=== PATIENT | male | born 1940 | race Caucasian/White ===

== ENCOUNTER 2017-01-12 05:38 | Day surgery (SDC) | payer MEDICARE ==
[2017-01-12] MEDS: PROPARACAINE 0.5% OPHTH SOL 15 ML BTTL ONE ×3 (08:15→09:22)
[2017-01-12] MEDS: TOBRAMYCIN SULF 0.3 % OPHT SOL 1 DROP LEFT_EYE ONE ×2 (08:15→09:42)
[2017-01-12] MEDS ORDERED: TROP 1%/CYCLOPEN 1%/PHENYL 2% DROPS OPHTH ONE ×3 (08:15→08:30)
[2017-01-12] MEDS ORDERED: MIDAZOLAM INJ 5 MG/5 ML VIAL ONE (09:15)
[2017-01-12] MEDS ORDERED: LIDOCAINE 1% PF 2 ML AMP INJ ONE (09:24)
[2017-01-12] MEDS ORDERED: BRIMONIDINE 0.2% OPHTH DROPS LEFT_EYE ONE (09:42)
[2017-01-12] MEDS ORDERED: DEXAMETHASONE 0.1% OPHTH SOL 1 DROP LEFT_EYE ONE (09:42)
[2017-01-12 15:44] VITALS: BP 157/84; TEMP 96.4; O2SAT 96
== END 2017-01-12 10:30 | disposition home or self-care (01) ==
LOC: AMB 05:38
PROVIDERS: ATTEND Ophthalmology
DX: H25.12 Age-related nuclear cataract, left eye (principal)
CPT/HCPCS: 66984; J2250

== ENCOUNTER 2017-01-22 05:49 | Day surgery (SDC) | payer MEDICARE ==
[2017-01-22] MEDS ORDERED: MIDAZOLAM INJ 5 MG/5 ML VIAL ONE (08:47)
[2017-01-22] MEDS ORDERED: PROPARACAINE 0.5% OPHTH SOL 15 ML BTTL ONE ×2 (11:59→13:22)
[2017-01-22] MEDS ORDERED: LIDOCAINE 1% PF 2 ML AMP INJ ONE (12:00)
[2017-01-22 13:14] VITALS: O2SAT 100
[2017-01-22] MEDS ORDERED: TROP 1%/CYCLOPEN 1%/PHENYL 2% DROPS ONE (13:23)
[2017-01-22] MEDS: TOBRAMYCIN SULF 0.3 % OPHT SOL 1 DROP RIGHT_EYE ONE ×3 (13:39→14:37)
[2017-01-22] MEDS ORDERED: PROPARACAINE 0.5% OPHTH SOL 15 ML BTTL RIGHT_EYE ONE (14:10)
[2017-01-22] MEDS ORDERED: DEXAMETHASONE 0.1% OPHTH SOL 1 DROP RIGHT_EYE ONE ×3 (14:27→14:37)
[2017-01-22] MEDS ORDERED: BRIMONIDINE 0.2% OPHTH DROPS RIGHT_EYE ONE ×2 (14:28→14:37)
[2017-01-22 14:58] VITALS: BP 147/78; TEMP 97.6
== END 2017-01-22 15:15 | disposition home or self-care (01) ==
LOC: AMB 05:49
PROVIDERS: ATTEND Ophthalmology
DX: H25.11 Age-related nuclear cataract, right eye (principal)
CPT/HCPCS: 00142; 66984; J2250

== ENCOUNTER → 2017-11-23 | Outpatient (CLI) | payer MEDICARE ==
--- NOTE | 2017-11-23 10:12 | CT ---
EXAM DESCRIPTION: Abdomen/Pelvis w/Contrast CLINICAL HISTORY: 77 years Male, ABD/PELVIC PAIN COMPARISON: CTA chest, September 27, 2013. TECHNIQUE: Contiguous 5 mm axial images were obtained from the lung bases to the level of the proximal femora after the administration of intravenous and oral contrast. Delayed images were also obtained from the lung bases to the proximal femoral level. Sagittal and coronal reconstructions were reviewed. FINDINGS: THORAX: The imaged lower thorax demonstrates persistent pleural-based scarring in the lateral segment of the right middle lobe. Again noted are minimal bibasilar atelectatic changes and a small cystic changes within both lower lobes. Persistent trace pericardial effusion is also noted. Mild thickening of the distal esophagus likely related to acid reflux disease. LIVER: The liver demonstrates normal size and density with no intrahepatic biliary ductal dilatation or enhancing focal masses. Again noted is a 1.5 cm low-density lesion in the segment 4 a and a 9 mm low-density lesion in segment 8 and on the dome likely represents simple cysts. GALLBLADDER: Grossly unremarkable. No evidence of cholelithiasis or acute cholecystitis. PANCREAS: Appears normal with no cystic or solid lesions. SPLEEN: Normal ADRENAL GLANDS: Normal with no nodules or masses. KIDNEYS: Both kidneys enhance symmetrically with no hydronephrosis or nephrolithiasis or perinephric fluid collections. No focal masses are identified. The ureters appear grossly unremarkable throughout the length. STOMACH: The stomach is collapsed limiting detail evaluation. SMALL BOWEL: The small bowel loops demonstrate variable degrees of distention with no abnormal dilatation or other signs to suggest bowel obstruction. LARGE Bowel: the rectum is not well-distended limiting detail evaluation.The rest of the large bowel loops appear grossly unremarkable with no abnormal dilatation or wall thickening. The appendix is not well-visualized, however no inflammatory changes within the right lower quadrant to suggest acute appendicitis. No evidence of free intraperitoneal air or fluid. Scattered diverticuli are noted throughout the colon with no evidence of acute diverticulitis. RETROPERITONEUM: The abdominal aorta is nonaneurysmal with mild atherosclerosis. The inferior vena cava is normal in size and caliber. No abnormally enlarged retroperitoneal lymph nodes are identified. URINARY BLADDER:The urinary bladder is well-distended with no gross abnormality. The prostate is enlarged measuring 4.0 x 5.6 cm in AP and transverse dimensions causing indentation at the base of the bladder. ADDITIONAL FINDINGS: Surgical clips are noted in the left inguinal region, could be related to prior surgery. BONES: Mild degenerative changes are identified in the lumbar spine and bilateral hip joints.No evidence of osteophytic or osteoblastic lesions. IMPRESSION: 1. No acute intra-abdominal process. 2. Diverticulosis with no evidence of acute diverticulitis. 3. Persistent trace pericardial effusion. 4. Prostatomegaly likely secondary to BPH. This exam was performed according to our departmental dose-optimization program, which includes automated exposure control, adjustment of the mA and/or kV according to patient size and/or use of iterative reconstruction technique. Electronically signed by: Angel Luis Rainey MD 11/23/2017 10:10 AM CDT
== END ==
LOC: CT 08:00
PROVIDERS: ATTEND Nurse Practitioner
DX: R10.2 Pelvic and perineal pain (principal); K57.90 Diverticulosis of intestine, part unspecified, without perforation or abscess without bleeding; N40.0 Benign prostatic hyperplasia without lower urinary tract symptoms; I31.3 Pericardial effusion (noninflammatory); R10.9 Unspecified abdominal pain

== ENCOUNTER → 2020-02-06 | Outpatient (CLI) | payer MEDICARE ==
--- NOTE | 2020-02-06 18:46 | CT ---
EXAM: CT Head Without Intravenous Contrast CLINICAL HISTORY: The patient is 79 years old and is Male; HEADACHE TECHNIQUE: Axial computed tomography images of the head/brain without intravenous contrast. Sagittal and coronal reformatted images were created and reviewed. This CT exam was performed using one or more of the following dose reduction techniques: automated exposure control, adjustment of the mA and/or kV according to patient size, and/or use of iterative reconstruction technique. COMPARISON: CT head August 01, 2007. FINDINGS: Brain: No intracranial hemorrhage. Chronic lacunar infarcts, right basal ganglia. No significant white matter disease. Ventricles: Unremarkable. No ventriculomegaly. Bones/joints: Unremarkable. No acute skull fracture. Soft tissues: Unremarkable. Sinuses: Unremarkable as visualized. No acute sinusitis. Mastoid air cells: Right mastoid and right middle ear fluid. No significant left mastoid fluid. IMPRESSION: 1. No intracranial hemorrhage. 2. Chronic lacunar infarcts, right basal ganglia. 3. Right mastoid and right middle ear fluid. Electronically signed by: May Nunez MD 02/06/2020 6:45 PM CDT
== END ==
LOC: CT 17:59
PROVIDERS: ATTEND General Practice
DX: I63.81 Other cerebral infarction due to occlusion or stenosis of small artery (principal); H74.8X1 Other specified disorders of right middle ear and mastoid; R51 Headache

== ENCOUNTER → 2020-03-07 | Outpatient (CLI) | payer MEDICARE ==
--- NOTE | 2020-03-08 10:10 | MRI ---
EXAM DESCRIPTION: Lumbar Spine w/o Contrast : Magnetic Resonance Imaging. CLINICAL HISTORY: RADICULOPATHY LUMBAR REGION COMPARISON: None. TECHNIQUE: Multiplanar, multiple standard sequences, non contrast MRI, lumbar spine. FINDINGS: L5-S1: The disc is well visualized on axial T2 series 501, image 3. Normal signal in the disc with disc space preserved. No posterior bulging. Minimal hypertrophic changes in the posterior flavum ligaments and facet joints (canal elements) mild canal narrowing. Bilateral foramina are patent. L4-L5: Disc desiccation with tiny posterior midline bulge. Mild hypertrophy of the canal elements. AP canal diameter 10 mm. Mild narrowing left foramen and moderate to severe narrowing of the right foramen. L3-L4: Disc desiccation minimal posterior bulge and minimal disc space loss. Mild hypertrophy of the canal elements. AP canal diameter 12 mm. Moderate narrowing of the foramina left more than right, with disc bulging into the left foramen. L2-L3: Minimal disc desiccation and disc space preserved. Mild hypertrophic changes posterior elements. AP canal diameter normal. Mild to moderate bilateral foraminal narrowing, more on the left with disc bulging into the foramen. L1-L2: Minimal disc desiccation with disc space preserved. Minimal hypertrophic changes in the canal elements. Canal patent. Mild bilateral foraminal narrowing. T12-L1: Disc desiccation with minimal disc space loss. No bulging. Canal elements unremarkable. Foraminal and canal are patent. Conus terminates just below the disc space. T11-T12. Disc desiccation anterior bulging and spurs. No posterior bulging. Canal and foramina are patent. No scoliosis. Paravertebral soft tissues minimal muscle atrophy.. Distal cord normal signal and caliber. Normal marrow signal in the remaining vertebral bodies and the posterior elements. Vertebral bodies are not compressed at any level. IMPRESSION: 1. Multiple levels of hypertrophic changes in the facet joints and posterior flavum ligaments. Multiple levels of disc desiccation. No significant spondylosis in the lumbar spine with early spondylosis anteriorly at T11-T12. 2. Disc desiccation posterior midline bulge and borderline mild central canal stenosis. Moderate to severe narrowing of the right foramen. Moderate narrowing of the left foramina at L3-L4 and L2-L3 due to disc bulging. 3. Please refer to the FINDINGS for discussion of results at other disc space levels. Electronically signed by: Keven Ferrara MD 03/08/2020 9:57 AM CDT
== END ==
LOC: MRI 09:00
PROVIDERS: ATTEND General Practice
DX: M51.14 Intervertebral disc disorders with radiculopathy, thoracic region (principal); M46.96 Unspecified inflammatory spondylopathy, lumbar region; M24.28 Disorder of ligament, vertebrae; M47.894 Other spondylosis, thoracic region; M48.061 Spinal stenosis, lumbar region without neurogenic claudication